=== PATIENT | male | born 1960 ===

== ENCOUNTER 2017-11-02 07:03 | Day surgery (SDC) | payer OTHER ==
[2017-11-02] MEDS ORDERED: LR 1,000 ML IV ONE (07:17)
[2017-11-02] MEDS ORDERED: ceFAZolin 2 GM/DEXTROSE 100 ML IV ONE (07:17)
[2017-11-02] MEDS ORDERED: LIDOCAINE 1% 2 ML INJ ID PRN (07:17)
--- NOTE | 2017-11-02 07:24 | PDHPUP ---
History & Physical Update H&P update statement: This history and physical update is based on an assessment of the patient which was completed after admission or registration (within 24 hours), but prior to the surgery/procedure. H&P update: H&P reviewed & patient examined, no change in patient's condition since H&P completed
[2017-11-02] MEDS ORDERED: fentaNYL 100 MCG/2 ML INJ IVP ONE (08:00)
[2017-11-02] MEDS ORDERED: BUPIVACAINE 0.5% 30 ML SDV ONE (08:19)
--- NOTE | 2017-11-02 08:24 | PDANEPAE ---
ANE Past Medical History - Cardiovascular History Hx Hypertension: Yes - Pulmonary History Hx Sleep Apnea: No - Endocrine History Hx Diabetes: Yes - Cancer History Hx Cancer: Yes ANE Review of Systems Review of Systems: ANE Patient History - Allergies Allergies/Adverse Reactions: No Known Allergies Allergy (Unverified 10/31/17 08:50) - Home Medications Home Medications: Gabapentin DAILY 11/01/17 [Last Taken 11/01/17 22:00] Lisinopril DAILY 11/01/17 [Last Taken 11/02/17 05:00] Oxycodone HCl Q4 11/01/17 [Last Taken 11/02/17 05:00] - NPO status NPO Since - Liquids (Date): 11/02/17 NPO Since - Liquids (Time): 05:00 NPO Since - Solids (Date): 11/01/17 NPO Since - Solids (Time): 17:00 ANE Labs/Vital Signs - Vital Signs Blood Pressure: 130/70 Heart Rate: 85 Respiratory Rate: 15 O2 Sat (%): 93 Height: 162.56 cm Weight: 82.554 kg ANE Physical Exam - Airway Mallampati Score: Class 2 Mouth exam: dentures - ASA Status ASA Status: III ANE Anesthesia Plan Anesthesia Plan: GA w LMA
[2017-11-02] MEDS ORDERED: PROPOFOL 200 MG/20 ML VIAL ONE (08:28)
[2017-11-02] MEDS ORDERED: fentaNYL 100 MCG/2 ML INJ ONE ×2 (08:28→10:25)
[2017-11-02] MEDS ORDERED: MIDAZOLAM 2 MG/2 ML VIAL ONE (08:28)
[2017-11-02] MEDS ORDERED: METOCLOPRAMIDE 10 MG/2 ML VIAL ONE (08:31)
[2017-11-02] MEDS ORDERED: ONDANSETRON 4 MG/2 ML VIAL ONE (08:31)
[2017-11-02] MEDS ORDERED: LIDOCAINE 2% JELLY 5 ML TUBE ONE (08:31)
--- NOTE | 2017-11-02 08:41 | POSTOPPROG ---
Post Op Note Date of Operation: 11/02/17 Surgeon: Elsy Alves Anesthesiologist: amador Anesthesia: GET(General Endotracheal) Pre-op Diagnosis: sarcoma Post-op Diagnosis: same Indication: 57 yo with sarcoma Procedure: ultrasound guided port placement L and skin tag removal Inf/Abcess present in the surg proc area at time of surgery?: No Specimen(s): skin tag
[2017-11-02] MEDS ORDERED: fentaNYL 100 MCG/2 ML INJ IVP PRN (09:20)
[2017-11-02] MEDS ORDERED: PROMETHAZINE HCL 25 MG/ML INJ IVP PRN (09:20)
[2017-11-02] MEDS ORDERED: PHENYLEPHRINE HCL 100 MCG/ML SYR IVP PRN (09:20)
[2017-11-02] MEDS ORDERED: oxyCODONE IR 5 MG TAB PO PRN (09:20)
[2017-11-02] MEDS ORDERED: LR 500 ML IV PRN (09:20)
[2017-11-02] MEDS ORDERED: NALOXONE HCL 0.4 MG/ML INJ IVP PRN (09:20)
--- NOTE | 2017-11-02 09:21 | POSTANESTH ---
Post Anesthetic Evaluation Cardiovascular Status: Similar to Pre-Op Cond Respiratory Status: Normal, Stable Level of Consciousness/Mental Status: Can Participate in Eval Pain Control: Adequate, Prn Tx Ordered Nausea/Vomiting Control: Adequate, Prn Tx Ordered Complications Possibly Related to Anesthesia: None Noted
--- NOTE | 2017-11-02 09:42 | GOP ---
DATE OF OPERATION: 11/02/2017 SURGEON: Elsy Alves MD ANESTHESIA: General. ANESTHESIOLOGIST: Dr. John De Dios. PREOPERATIVE DIAGNOSIS: Sacral sarcoma right chest skin tag POSTOPERATIVE DIAGNOSIS: Sacral sarcoma and right chest skin tag PROCEDURE PERFORMED: Left ultrasound-guided internal jugular PowerPort placement and excision of right chest skin tag. FINDINGS: tip SVC RA junction SPECIMENS: None. ESTIMATED BLOOD LOSS: 5 cc. INDICATIONS: Mr. 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 He also had a large dominant skin tag on his right chest. DESCRIPTION OF PROCEDURE: Patient was brought into the operating room, placed supine on the table. General anesthesia was administered. His bilateral neck and chest were prepped and draped in the usual sterile fashion. I infiltrated all sites with 0.5% Marcaine prior to making incisions. I tried to access his left subclavian vein first. I was not successful and so I used the ultrasound to identify the left internal jugular vein. It was fully compressible. I accessed it on the first attempt with dark return of blood flow. The wire was placed and the needle removed. Placement confirmed with fluoroscopy. I made a pocket to accommodate the port in the left chest. I tunneled this up to the insertion site under fluoroscopy. I measured the catheter and cut it to size. Using the Seldinger technique, I placed a dilator and sheath over the wire, removed the wire and the dilator. I threaded the catheter through the sheath and peeled away the sheath. Placement was confirmed with fluoroscopy. The port withdrew blood easily and was flushed with heparin. The pocket was closed with 3-0 Vicryl followed by 4-0 Monocryl, Dermabond applied. Next, I elevated the tag on the right chest. I excised it, Dermabond applied. He was awakened in the operating room, extubated, transferred to PACU in stable condition. Chest x-ray is pending. /[id number]/MODL MTDD
[2017-11-02] MEDS ORDERED: oxyCODONE IR 5 MG TAB ONE (10:25)
[2017-11-02 11:48] VITALS: BP 132/74
== END 2017-11-02 11:45 | disposition home or self-care (01) ==
LOC: FSGY 07:03
PROVIDERS: ATTEND Surgery
PROC: 0JH60XZ Insertion of Tunneled Vascular Access Device into Chest Subcutaneous Tissue and Fascia, Open Approach (ICD-10-PCS; principal; 2017-11-02 08:30)
PROC: 02HV33Z Insertion of Infusion Device into Superior Vena Cava, Percutaneous Approach (ICD-10-PCS; principal; 2017-11-02 08:30)
PROC: 0HB5XZX Excision of Chest Skin, External Approach, Diagnostic (ICD-10-PCS; principal; 2017-11-02 08:30)
DX: Z45.2 Encounter for adjustment and management of vascular access device (principal); C49.3 Malignant neoplasm of connective and soft tissue of thorax; I10 Essential (primary) hypertension; E11.9 Type 2 diabetes mellitus without complications
CPT/HCPCS: C1788; J0690; J1642; J2250; J2405; J2704; J2765; J3010

== ENCOUNTER → 2017-12-05 | Outpatient (CLI) | payer OTHER | LOC: FIMAGING 09:30 | PROVIDERS: ATTEND Surgery | DX: C49.9 Malignant neoplasm of connective and soft tissue, unspecified (principal); Z95.828 Presence of other vascular implants and grafts ==

== ENCOUNTER → 2018-04-18 | Outpatient (CLI) | payer MEDICAID ==
[~2018-04-18] MED LIST: GADOBUTROL 10 ML VIAL IVP ONE
== END ==
LOC: FIMAGING 12:32
PROVIDERS: ATTEND Nurse Practitioner
DX: R19.00 Intra-abdominal and pelvic swelling, mass and lump, unspecified site (principal); M62.81 Muscle weakness (generalized); C49.9 Malignant neoplasm of connective and soft tissue, unspecified; C79.51 Secondary malignant neoplasm of bone
CPT/HCPCS: A9585